=== PATIENT | male | born 1975 | race Hispanic/Latino ===

== ENCOUNTER 2021-12-23 06:23 | Emergency (ER) | payer OTHER ==
[~2021-12-23] VITALS: Ht 175.3 cm; Wt 107.0 kg
[2021-12-23] MEDS ORDERED: KETOROLAC 15MG/ML VIAL (15MG/ML) ONE (06:43)
[2021-12-23] MEDS ORDERED: ONDANSETRON 4MG INJ ONE (06:43)
[2021-12-23] MEDS ORDERED: MORPHINE 4 MG SYG ONE (06:44)
[2021-12-23] MEDS ORDERED: 0.9%NACL 1000ML 1,000 ML IV ONE (06:44)
[2021-12-23 06:50] LABS: BASOPHILS % (AUTO) 0.5 % (0.0-5.0); EOSINOPHILS % (AUTO) 0.1 % (0.0-8.0); HEMATOCRIT 43.6 % (42-54); LYMPHOCYTES % (AUTO) 11.1 % (21.0-51.0); MEAN CORPUSCULAR HEMOGLOBIN 30.4 pg (27.0-33.0); MEAN CORPUSCULAR HGB CONC 34.4 g/dL (32.0-36.0); MEAN CORPUSCULAR VOLUME 88.4 fL (79-99); MONOCYTES % (AUTO) 5.6 % (3.0-13.0); PLATELET COUNT (AUTO) 353 K/uL (130-400); RED BLOOD CELL COUNT(AUTO) 4.93 MIL/uL (4.50-6.20); RED CELL DISTRIBUTION WIDTH 12.5 % (11.0-15.5); WHITE BLOOD COUNT (AUTO) 13.1 K/uL (4.8-10.8)
[2021-12-23] MEDS ORDERED: MORPHINE 4 MG SYG IVP SCH (07:00)
[2021-12-23] MEDS ORDERED: KETOROLAC 15MG/ML VIAL (15MG/ML) IV SCH (07:00)
[2021-12-23] MEDS ORDERED: 0.9%NACL 1000ML 1,000 ML IV SCH (07:00)
[2021-12-23] MEDS ORDERED: ONDANSETRON 4MG INJ IVP SCH (07:00)
[2021-12-23 08:19] LABS: ALBUMIN 3.4 g/dL (3.5-5.0); BILIRUBIN,TOTAL 0.5 mg/dL (0.2-1.0); CREATININE 0.8 mg/dL (0.5-1.5); TOTAL PROTEIN, SERUM 7.2 g/dL (6.0-8.3)
[2021-12-23] MEDS ORDERED: IOHEXOL-350 75 ML VIAL IV ONE (08:29)
[2021-12-23] MEDS ORDERED: LINA145C PO (09:46)
[2021-12-23 09:59] VITALS: BP 135/74
== END 2021-12-23 10:02 | disposition home or self-care (01) ==
LOC: EDH 06:23
DX: K80.50 Calculus of bile duct without cholangitis or cholecystitis without obstruction (principal); K59.00 Constipation, unspecified; I10 Essential (primary) hypertension
CPT/HCPCS: 36415; 74177; 76705; 80053; 83690; 85025; 96374; 96375; 99285; J1885; J2270; J2405; J7030; Q9967